=== PATIENT | female | born 1995 | race African-American/Black ===

== ENCOUNTER 2023-10-24 11:34 | Emergency (ER) | payer MEDICAID ==
[~2023-10-24] VITALS: Ht 157.5 cm; Wt 45.0 kg
[2023-10-24 11:48] VITALS: TEMP 98.4; O2SAT 100
[2023-10-24 13:11] LABS: CLARITY URINE BLOODY (CLEAR); COLOR URINE RED (YELLOW); OCCULT BLOOD URINE 4+ (NEGATIVE)
[2023-10-24 13:25] LABS: GLUCOSE URINE NEGATIVE (NEGATIVE); KETONES URINE 1+ (NEGATIVE)
[2023-10-24 13:35] LABS: LEUKOCYTE ESTERASE URINE 3+ (NEGATIVE); NITRITE URINE POSITIVE (NEGATIVE); PROTEIN URINE 1+ (NEGATIVE); SPECIFIC GRAVITY URINE 1.042 (1.005-1.030); UROBILINOGEN URINE 0.2 E.U./dL (0.2-1.0)
[2023-10-24 14:04] LABS: BASOPHILS % 0.6 % (0.0-2.0); EOSINOPHILS % 0.6 % (0.0-5.0); HEMOGLOBIN. 12.7 g/dL (12.0-16.0); LYMPHOCYTES % 35.3 % (20.0-50.0); MEAN CORPUSCULAR HEMOGLOBIN 30.5 pg (28.0-32.0); MEAN CORPUSCULAR HGB CONC 32.6 g/dL (31.0-37.0); MEAN CORPUSCULAR VOLUME 93.6 fL (81.0-99.0); MEAN PLATELET VOLUME 7.9 fl (7.4-10.4); MONOCYTES % 9.9 % (2.0-8.0); NEUTROPHILS % 53.6 % (40.0-76.0); PLATELET 305 x1000/uL (130-400); RED BLOOD CELL COUNT 4.16 mill/uL (4.2-5.4); RED CELL DISTRIBUTION WIDTH 14.2 % (11.6-14.6); WHITE BLOOD COUNT 8.9 x1000/uL (4.5-11.0)
[2023-10-24 14:05] LABS: HCG SCREEN POSITIVE
[2023-10-24 14:15] LABS: BACTERIA URINE NONE SEEN; RBC URINE TNTC /hpf (0-2); SQUAMOUS EPITHELIAL CELL URINE NONE SEEN /lpf (RARE/1+); WBC URINE 25-50 /hpf (0-2); YEAST URINE NONE SEEN
[2023-10-24 14:16] LABS: ALANINE AMINOTRANSFERASE < 7 IU/L (10-49); ALBUMIN 4.7 g/dL (3.2-4.8); ASPARTATE AMINOTRANSFERASE 15 IU/L (<34); B-HCG QUANTITATIVE 6266 mIU/mL (<3); BILIRUBIN TOTAL 0.6 mg/dL (0.1-1.0); CALCIUM 9.7 mg/dL (8.7-10.4); CARBON DIOXIDE 25 mEq/L (21-32); CHLORIDE 105 mEq/L (98-107); CREATININE 0.7 mg/dL (0.6-1.0); GLUCOSE 104 mg/dL (70-105); POTASSIUM 3.3 mEq/L (3.5-5.1); PROTEIN TOTAL 7.7 g/dL (6.0-8.3); SODIUM 137 mEq/L (136-145); UREA NITROGEN BLOOD 10 mg/dL (9-23)
[2023-10-24] MEDS ORDERED: MISOPROSTOL 200MCG TABLET PO ONE (16:45)
[2023-10-24] MEDS ORDERED: CEPH500T MT (17:08)
[2023-10-24] MEDS ORDERED: HYDROCODONE/ACETAMINOPHEN 5/325MG TABLET PO ONE (17:15)
[2023-10-24 23:22] VITALS: BP 121/77; PULSE 86; RESP 16
== END 2023-10-24 17:50 | disposition left against medical advice (07) ==
LOC: ER 11:34
DX: O46.91 Antepartum hemorrhage, unspecified, first trimester (principal); D64.9 Anemia, unspecified; Z3A.08 8 weeks gestation of pregnancy
CPT/HCPCS: 80053; 81003; 84703; 84702; 85025; 86850; 86900; 86901; 87086; 36415; 76801; 76817; 99284; Z7610

== ENCOUNTER 2024-05-13 08:48 | Emergency (ER) | payer MEDICAID ==
[~2024-05-13] VITALS: Ht 162.6 cm; Wt 47.0 kg
[~2024-05-13 08:48] MED LIST: CEPH500T MT
[2024-05-13 08:58] VITALS: O2SAT 100
[2024-05-13 09:17] LABS: BASOPHILS % 0.8 % (0.0-2.0); EOSINOPHILS % 0.5 % (0.0-5.0); HEMATOCRIT. 40.3 % (36.0-48.0); LYMPHOCYTES % 29.7 % (20.0-50.0); MEAN CORPUSCULAR HGB CONC 32.2 g/dL (31.0-37.0); MEAN CORPUSCULAR VOLUME 96.1 fL (81.0-99.0); MEAN PLATELET VOLUME 8.3 fl (7.4-10.4); PLATELET 234 x1000/uL (130-400); RED BLOOD CELL COUNT 4.19 mill/uL (4.2-5.4); RED CELL DISTRIBUTION WIDTH 15.4 % (11.6-14.6); WHITE BLOOD COUNT 7.7 x1000/uL (4.5-11.0)
[2024-05-13 09:36] LABS: CHLORIDE 108 mEq/L (98-107); POTASSIUM 3.2 mEq/L (3.5-5.1); SODIUM 138 mEq/L (136-145)
[2024-05-13 09:37] LABS: CARBON DIOXIDE 26 mEq/L (21-32)
[2024-05-13 09:38] LABS: CALCIUM 9.5 mg/dL (8.7-10.4); HCG SCREEN NEGATIVE
[2024-05-13 09:42] LABS: CREATININE 0.9 mg/dL (0.6-1.0); GLUCOSE 93 mg/dL (70-105)
[2024-05-13 09:43] LABS: UREA NITROGEN BLOOD 11 mg/dL (9-23)
[2024-05-13 09:44] LABS: ALANINE AMINOTRANSFERASE 10 IU/L (10-49); ALBUMIN 4.6 g/dL (3.2-4.8); ASPARTATE AMINOTRANSFERASE 22 IU/L (<34)
[2024-05-13 09:45] LABS: BILIRUBIN TOTAL 0.6 mg/dL (0.1-1.0); PROTEIN TOTAL 7.2 g/dL (6.0-8.3)
[2024-05-13] MEDS: DEXAMETHASONE 10 MG/ML VIAL IM ONE (09:53)
[2024-05-13] MEDS: KETOROLAC 15MG/ML VIAL IM ONE (09:55)
[2024-05-13 10:10] LABS: CLARITY URINE TURBID (CLEAR); COLOR URINE YELLOW (YELLOW); GLUCOSE URINE NEGATIVE (NEGATIVE); KETONES URINE 1+ (NEGATIVE); LEUKOCYTE ESTERASE URINE 1+ (NEGATIVE); NITRITE URINE NEGATIVE (NEGATIVE); OCCULT BLOOD URINE TRACE (NEGATIVE); PROTEIN URINE 1+ (NEGATIVE); SPECIFIC GRAVITY URINE 1.028 (1.005-1.030)
[2024-05-13 10:21] LABS: SQUAMOUS EPITHELIAL CELL URINE 3+ /lpf (RARE/1+)
[2024-05-13 10:25] LABS: BACTERIA URINE 4+
[2024-05-13 10:26] LABS: YEAST URINE NONE SEEN
[2024-05-13 10:40] VITALS: BP 127/63; PULSE 84; RESP 16; TEMP 98.3
== END 2024-05-13 10:41 | disposition home or self-care (01) ==
LOC: ER 08:48
DX: R06.00 Dyspnea, unspecified (principal); D64.9 Anemia, unspecified; J45.909 Unspecified asthma, uncomplicated
CPT/HCPCS: 80053; 81003; 84703; 85025; 36415; 71045; 93005; 96372; 99285; J1100; J1885; Z7610

== ENCOUNTER 2025-01-23 22:39 | Emergency (ER) | payer MEDICAID ==
[~2025-01-23] VITALS: Ht 162.6 cm; Wt 48.3 kg
[2025-01-23 23:00] VITALS: O2SAT 100
[2025-01-23 23:01] VITALS: BP 118/71; PULSE 118; RESP 16; TEMP 36.9; O2SAT 100
[2025-01-23] MEDS: CEFTRIAXONE SODIUM 500MG VIAL IM ONE (23:54)
[2025-01-23] MEDS: LIDOCAINE HCL/PF 1% 10 MG/ML 5ML VIAL INFIL ONE (23:55)
[2025-01-24 00:08] LABS: CLARITY URINE CLEAR (CLEAR); COLOR URINE YELLOW (YELLOW); GLUCOSE URINE NEGATIVE (NEGATIVE); KETONES URINE NEGATIVE (NEGATIVE); LEUKOCYTE ESTERASE URINE NEGATIVE (NEGATIVE); NITRITE URINE NEGATIVE (NEGATIVE); OCCULT BLOOD URINE NEGATIVE (NEGATIVE); PROTEIN URINE NEGATIVE (NEGATIVE); SPECIFIC GRAVITY URINE 1.006 (1.005-1.030); UROBILINOGEN URINE 0.2 E.U./dL (0.2-1.0)
[2025-01-24] MEDS ORDERED: DOXY100C5 MT (01:05)
[2025-01-25 14:09] LABS: CHLAMYDIA TRACHOMATIS NAA Negative (Negative); NEISSERIA GONORRHOEAE NAA Negative (Negative)
== END 2025-01-24 02:00 | disposition home or self-care (01) ==
LOC: ER 22:39
DX: Z11.3 Encounter for screening for infections with a predominantly sexual mode of transmission (principal); J45.909 Unspecified asthma, uncomplicated; Z79.899 Other long term (current) drug therapy; Z88.8 Allergy status to other drugs, medicaments and biological substances
CPT/HCPCS: 99283; 87491; 87591; 81003; 96372; J0696; J2003